=== PATIENT | male | born 1990 | race Hispanic/Latino ===

== ENCOUNTER 2021-12-18 22:01 | Inpatient (IN) | payer SELFPAY ==
[2021-12-18] MEDS ORDERED: ONDANSETRON 4 MG/2 ML VIAL ONE (23:06)
[2021-12-18] MEDS ORDERED: KETOROLAC 30 MG/ML INJ ONE (23:06)
[2021-12-18] MEDS ORDERED: NA CHLORIDE 0.9% 1,000 ML ONE (23:06)
[2021-12-18 23:09] LABS: Absolute Lymphocytes (CBC) 1.3 K/uL (0.7-4.9); Hematocrit 48.6 % (39.6-49.0); Lymphocytes % 11.4 % (15.3-44.8); MPV 9.2 fL (7.6-11.3); RBC Red Blood Cell Count 5.46 M/uL (4.33-5.43)
[2021-12-18 23:18] LABS: ALT/SGPT 31 U/L (12-78); AST/SGOT 15 U/L (15-37); Albumin 4.1 g/dL (3.4-5.0); Alkaline Phosphatase 88 U/L (45-117); BUN Blood Urea Nitrogen 10 mg/dL (7-18); Bicarbonate 30 mmol/L (21-32); Bilirubin Direct < 0.1 mg/dL (0-0.2); Bilirubin Total 0.4 mg/dL (0.2-1.0); Glucose Level 102 mg/dL (74-106); Lipase 94 U/L (73-393); Potassium 3.8 mmol/L (3.5-5.1); Protein, Total 8.4 g/dL (6.4-8.2); Sodium Level 136 mmol/L (136-145)
--- NOTE | 2021-12-19 01:32 | ER ---
Nurse's Notes [facility] Name: Hernandez Lopes Age: 31 yrs Sex: Male : 1990 Arrival Date: 12/18/2021 Time: 22:05 Bed 18 Private MD: Diagnosis: Acute cholecystitis Presentation: 12/18 22:12 Chief complaint: Patient states: upper/mid abd pain since 11:30am, vomited 8 times. sm5 thinks it may be related to what he is eating. Coronavirus screen: Vaccine status: Patient reports receiving the 2nd dose of the covid vaccine. Ebola Screen: No symptoms or risks identified at this time. Initial Sepsis Screen: Does the patient meet any 2 criteria? No. Patient's initial sepsis screen is negative. Does the patient have a suspected source of infection? No. Patient's initial sepsis screen is negative. Risk Assessment: Do you want to hurt yourself or someone else? Patient reports no desire to harm self or others. Onset of symptoms was December 18, 2021 at 11:30. 22:12 Method Of Arrival: Ambulatory [facility] 22:12 Acuity: MALACHI 3 [facility] Triage Assessment: 12/19 02:27 General: Behavior is calm, cooperative. linda Historical: - Allergies: 12/18 22:14 No Known Allergies; [facility] - Home Meds: 22:14 None [Active]; 5 - PMHx: 22:14 None; 5 - Immunization history:: Client reports receiving the 2nd dose of the Covid vaccine. - Social history:: Smoking status: Patient denies any tobacco usage or history of. Patient uses alcohol, weekly. Screenin:48 Abuse screen: Denies threats or abuse. Denies injuries from another. Nutritional linda screening: No deficits noted. Tuberculosis screening: No symptoms or risk factors identified. Fall Risk None identified. Assessment: 22:48 General: Appears uncomfortable. Pain: Complains of pain in abdomen. GI: Reports upper linda abdominal pain. 23:41 Reassessment: Patient appears in no apparent distress at this time. Patient states linda feeling better. Pain: Denies pain. 23:47 GI: Reports. linda 12/19 02:27 GI: Abd is soft and non tender. linda 03:22 General: Another nurse called report to the floor, as the pt is going to 415, and I linda will transfer the pt ainsley. Currently, he is resting comfortably. Registration called to "flip" the pt. . Vital Signs: 12/18 22:12 BP 144 / 83; Pulse 65; Resp 18; Temp 97.8; Pulse Ox 100% ; Weight 74.84 kg; Height 5 5 ft. 5 in. (165.10 cm); Pain 4/10; 22:48 BP 133 / 78; Pulse 58; Resp 16; Temp 98.6; Pulse Ox 100% on R/A; Pain 8/10; linda 23:45 BP 140 / 76; Pulse 52; Resp 16; Pulse Ox 100% on R/A; Pain 3/10; linda 12/19 01:23 BP 135 / 59; Pulse 58; Resp 18; Temp 98.6; Pulse Ox 100% on R/A; linda 02:00 BP 125 / 77; Pulse 77; Resp 16; Pulse Ox 100% on R/A; linda 03:11 BP 117 / 73; Pulse 72; Resp 14; Pulse Ox 99% on R/A; Pain 0/10; linda 12/18 22:12 Body Mass Index 27.46 (74.84 kg, 165.10 cm) [facility] ED Course: 12/18 22:05 Patient arrived in ED. kc5 22:14 Triage completed. [facility] 22:22 Chel[facility] Mora [facility]C [facility] kb 22:22 Seamus Abbott MD is Attending Physician. kb 22:48 Patient has correct armband on for positive identification. Pt walking around room. linda 22:59 Ana Rg, RN is Primary Nurse. linda 23:27 US Abdomen Limited In Process Unspecified. EDMS 23:45 Bed in low position. Call light in reach. Side rails up X 1. Verbal reassurance given. linda 23:45 Inserted saline lock: 20 gauge in left forearm, using aseptic technique. linda 23:47 No provider procedures requiring assistance completed. linda 12/19 01:31 Joby Enriquez MD is Hospitalizing Provider. kb 02:27 Arm band placed on. linda 03:23 Flushed linda Administered Medications: 12/18 23:12 Drug: NS 0.9% 1000 ml Route: IV; Rate: 1000 ml; Site: left antecubital; linda 12/19 02:44 Follow up: IV Intake: 1000ml linda 12/18 23:12 Drug: Zofran (Ondansetron) 4 mg Route: IVP; Site: left antecubital; linda 23:46 Follow up: Response: No adverse reaction linda 23:13 Drug: Ketorolac 15 mg Route: IVP; Site: left antecubital; linda 23:46 Follow up: Response: No adverse reaction; Pain is decreased linda 12/19 02:30 Drug: Flagyl (metroNIDAZOLE) 500 mg Volume: 100 ml; Route: IVPB; Rate: 200 ml/hr; linda Infused Over: 30 mins; Site: left antecubital; 03:12 Follow up: Response: No adverse reaction linda 02:43 Drug: D5-NS 1000 ml Route: IV; Rate: 125 ml/hr; Site: left antecubital; linda 02:44 Drug: morphine 4 mg Route: IVP; Site: left antecubital; linda 02:44 Follow up: Response: Pain is decreased linda 02:45 Drug: Mefoxin (cefOXitin) 1 grams Route: IVPB; Infused Over: 30 mins; Site: left linda antecubital; 03:12 Follow up: Response: No adverse reaction linda Intake: 02:44 IV: 1000ml; Total: 1000ml. linda Outcome: 01:31 Decision to Hospitalize by Provider. kb 02:27 Condition: stable linda 02:27 Admitted to Med/surg linda 04:42 Patient left the ED. linda Signatures: Dispatcher [employer] EDChelsie Edge FNP-C FNP-Ckb Clark, Kasey kc5 Shabnam Blanton RN RN sm5 Ana Rg RN RN linda
--- NOTE | 2021-12-19 01:32 | EDPHYS ---
Physician Documentation [facility] Name: Hernandez Lopes Age: 31 yrs Sex: Male : 1990 Arrival Date: 12/18/2021 Time: 22:05 Bed 18 Private MD: ED Physician Seamus Abbott HPI: 12/18 22:54 This 31 yrs old Male presents to ER via Ambulatory with complaints of kb Abdominal Pain. 22:54 The patient presents with abdominal pain in the right upper quadrant. Onset: The kb symptoms/episode began/occurred today. The symptoms do not radiate. Associated signs and symptoms: none. The symptoms are described as constant. Modifying factors: The symptoms are alleviated by nothing, the symptoms are aggravated by food. Severity of pain: At its worst the pain was moderate in the emergency department the pain is unchanged. The patient has not experienced similar symptoms in the past. The patient has not recently seen a physician. Pt reports upper abd pain that started this morning after eating [employer]. States he had this pain 2 other times this week, once after eating a breakfast taco and the other after eating pizza. . Historical: - Allergies: 22:14 No Known Allergies; sm5 - Home Meds: 22:14 None [Active]; sm5 - PMHx: 22:14 None; sm5 - Immunization history:: Client reports receiving the 2nd dose of the Covid vaccine. - Social history:: Smoking status: Patient denies any tobacco usage or history of. Patient uses alcohol, weekly. ROS: 22:54 Constitutional: Negative for fever, chills, and weight loss. kb 22:54 Abdomen/GI: Positive for abdominal pain, Negative for nausea, vomiting, and diarrhea. 22:54 All other systems are negative. Exam: 22:54 Constitutional: This is a well developed, well nourished patient who is awake, alert, kb and in no acute distress. Head/Face: Normocephalic, atraumatic. ENT: Moist Mucous membranes Cardiovascular: Regular rate and rhythm with a normal S1 and S2. No gallops, murmurs, or rubs. No pulse deficits. Respiratory: Respirations even and unlabored. No increased work of breathing. Talking in full sentences Skin: Warm, dry with normal turgor. Normal color. MS/ Extremity: Pulses equal, no cyanosis. Neurovascular intact. Full, normal range of motion. Neuro: Awake and alert, GCS 15, oriented to person, place, time, and situation. Moves all extremities. Normal gait. Psych: Awake, alert, with orientation to person, place and time. Behavior, mood, and affect are within normal limits. 22:54 Abdomen/GI: Inspection: abdomen appears normal, Bowel sounds: normal, in all quadrants, Palpation: soft, in all quadrants, moderate abdominal tenderness, in the right upper quadrant. Vital Signs: 22:12 BP 144 / 83; Pulse 65; Resp 18; Temp 97.8; Pulse Ox 100% ; Weight 74.84 kg; Height 5 sm5 ft. 5 in. (165.10 cm); Pain 4/10; 22:48 BP 133 / 78; Pulse 58; Resp 16; Temp 98.6; Pulse Ox 100% on R/A; Pain 8/10; linda 23:45 BP 140 / 76; Pulse 52; Resp 16; Pulse Ox 100% on R/A; Pain 3/10; linda 12/19 01:23 BP 135 / 59; Pulse 58; Resp 18; Temp 98.6; Pulse Ox 100% on R/A; linda 02:00 BP 125 / 77; Pulse 77; Resp 16; Pulse Ox 100% on R/A; linda 03:11 BP 117 / 73; Pulse 72; Resp 14; Pulse Ox 99% on R/A; Pain 0/10; linda 12/18 22:12 Body Mass Index 27.46 (74.84 kg, 165.10 cm) sm5 MDM: 12/18 22:25 Patient medically screened. kb 22:54 Data reviewed: vital signs, nurses notes. Data interpreted: Pulse oximetry: on room air kb is 100 %. Interpretation: normal. 12/19 00:25 Counseling: I had a detailed discussion with the patient and/or guardian regarding: the kb historical points, exam findings, and any diagnostic results supporting the discharge/admit diagnosis, lab results, radiology results, the need for further work-up and treatment in the hospital. Physician consultation: Joby Enriquez MD paged. 01:12 Physician consultation: Joby Enriquez MD paged again at 0101. kb 01:30 ED course: Dr Abbott spoke with Dr Enriquez about pt's admission. . kb 12/18 22:22 Order name: Basic Metabolic Panel kb 12/18 22:22 Order name: CBC with Diff kb 12/18 22:22 Order name: Hepatic Function kb 12/18 22:22 Order name: Lipase kb 12/18 22:23 Order name: Basic Metabolic Panel; Complete Time: 23:18 EDMS 12/18 22:23 Order name: CBC with Automated Diff; Complete Time: 23:11 EDMS 12/18 22:23 Order name: Liver (Hepatic) Function; Complete Time: 23:18 EDMS 12/18 22:23 Order name: Lipase; Complete Time: 23:18 EDMS 12/18 22:37 Order name: US Abdomen Limited kb 12/18 23:19 Order name: COVID-19 SARS RT PCR (Document "Date of Onset" if Symptomatic); Complete kb Time: :12/18 22:22 Order name: IV Saline Lock kb 12/18 22:22 Order name: Labs collected and sent kb Administered Medications: 12/18 23:12 Drug: NS 0.9% 1000 ml Route: IV; Rate: 1000 ml; Site: left antecubital; linda 12/19 02:44 Follow up: IV Intake: 1000ml linda 12/18 23:12 Drug: Zofran (Ondansetron) 4 mg Route: IVP; Site: left antecubital; linda 23:46 Follow up: Response: No adverse reaction linda 23:13 Drug: Ketorolac 15 mg Route: IVP; Site: left antecubital; linda 23:46 Follow up: Response: No adverse reaction; Pain is decreased linda 12/19 02:30 Drug: Flagyl (metroNIDAZOLE) 500 mg Volume: 100 ml; Route: IVPB; Rate: 200 ml/hr; linda Infused Over: 30 mins; Site: left antecubital; 03:12 Follow up: Response: No adverse reaction linda 02:43 Drug: D5-NS 1000 ml Route: IV; Rate: 125 ml/hr; Site: left antecubital; linda 02:44 Drug: morphine 4 mg Route: IVP; Site: left antecubital; linda 02:44 Follow up: Response: Pain is decreased linda 02:45 Drug: Mefoxin (cefOXitin) 1 grams Route: IVPB; Infused Over: 30 mins; Site: left linda antecubital; 03:12 Follow up: Response: No adverse reaction linda Disposition: 05:39 Co-signature as Attending Physician, Seamus Abbott MD I agree with the assessment and rn plan of care. Attestation: The patient's history, exam findings, diagnostics, and a summary of any interventions or procedures was reviewed in detail with Chelsie PONCE. Disposition Summary: 12/19/21 01:31 Hospitalization Ordered Hospitalization Status: Observation kb Provider: Joby Enriquez Location: Telemetry/MedSurg (observation) kb Condition: Stable kb Problem: new kb Symptoms: are unchanged kb Bed/Room Type: Standard Room Assignment: 415(12/19/21 02:24) eb1 Diagnosis - Acute cholecystitis kb Forms: - Medication Reconciliation Form kb - SBAR form kb Signatures: Dispatcher [employer] EDMS Chelsie Mora FNP-C FNP-CkSeamus Atkinson MD MD rn Basinger, Emily, RN RN eb1 Shabnam Blanton RN RN 5 Ana Rg RN RN linda Corrections: (The following items were deleted from the chart) 02:24 01:31 kb eb1
--- NOTE | 2021-12-19 01:44 | P.CNS ---
Date of Consult: 12/19/21 Reason for Consult: Medical management Requesting Physician: Joby Enriquez Primary Care Provider: none Chief Complaint: Right upper quadrant pain History of Present Illness: Otherwise healthy 31-year-old male presented to the emergency permit for right upper quadrant abdominal pain intermittently over the course of last week, this pain started after eating [employer] last night. Patient was evaluated in the emergency department labs were significant for white blood cell count 11.4, incidentally COVID-positive. Patient any respiratory symptoms at all who percent on room air fully vaccinated, has not tested positive for COVID previously, no known ill contacts. Patient had abdominal ultrasound which revealed cholelithiasis with questionable calculus lodged within the gallbladder neck, pericholecystic fluid and minimal gallbladder wall thickening findings which could be seen in acute cholecystitis. General surgery was consulted who recommends admission, n.p.o., IV antibiotics and pain medication with consult to the hospital service for patient being COVID-positive. - Past Medical/Surgical History -: None -: None Psychosocial/ Personal History: Patient is employed as a food and beverage intern , lives at home, alone. - Social History Smoking Status: Never smoker Alcohol use: Yes CD- Drugs: No Caffeine use: Yes Place of Residence: Home <Jaime Lloyd - Last Filed: 12/19/21 01:41> Review of Systems 10-point ROS is otherwise unremarkable Gastrointestinal: Nausea, Vomiting, Abdominal Pain <Jaime Lloyd - Last Filed: 12/19/21 01:41> Physical Examination General: Alert, In no apparent distress, Oriented x3 HEENT: Atraumatic, PERRLA, Mucous membr. moist/pink, EOMI, Sclerae nonicteric Neck: Supple, 2+ carotid pulse no bruit, No LAD, Without JVD or thyroid abnor mality Respiratory: Clear to auscultation bilaterally, Normal air movement Cardiovascular: Regular rate/rhythm, Normal S1 S2 Gastrointestinal: Normal bowel sounds, No rebound, No guarding, Tenderness (Moderate epigastric/right upper quadrant abdominal tenderness) Musculoskeletal: No tenderness Integumentary: No rashes Neurological: Normal gait, Normal speech, Normal tone, Normal affect Lymphatics: No axilla or inguinal lymphadenopathy Laboratory Data (last 24 hrs) 12/18/21 22:44: WBC 11.40 H, Hgb 16.5, Hct 48.6, Plt Count 233 12/18/21 22:44: Sodium 136, Potassium 3.8, BUN 10, Creatinine 0.84, Glucose 102, Total Bilirubin 0.4, AST 15, ALT 31, Alkaline Phosphatase 88, Lipase 94 <Jaime Lloyd - Last Filed: 12/19/21 01:41> Temp Pulse Resp BP Pulse Ox 98 F 62 20 113/54 L 91 12/19/21 12:25 12/19/21 12:25 12/19/21 12:25 12/19/21 12:25 12/19/21 08:00 Laboratory Data (last 24 hrs) 12/18/21 22:44: WBC 11.40 H, Hgb 16.5, Hct 48.6, Plt Count 233 12/18/21 22:44: Sodium 136, Potassium 3.8, BUN 10, Creatinine 0.84, Glucose 102, Total Bilirubin 0.4, AST 15, ALT 31, Alkaline Phosphatase 88, Lipase 94 <David Abbott - Last Filed: 12/19/21 14:06> Conclusions/Impression: Assessment: Right upper quadrant pain/vomiting suspected acute cholecystitis Incidentally COVID-positive Plan: Right upper quadrant pain/vomiting suspected acute cholecystitis: General surgery consulted, n.p.o., IV antibiotics including Mefoxin/Flagyl. Incidentally COVID-positive: Patient asymptomatic, fully vaccinated we will continue to monitor. DVT PPX: SCD Code status:Full Critical Care: No Time Spent Managing Pts care (In Minutes): 35 <Jaime Lloyd - Last Filed: 12/19/21 01:41> Conclusions/Impression: Patient seen and examined on rounds this morning. Continues with RUQ abdominal discomfort, no n/v denies SOB, no cough, denies any other respiratory symptoms asymptomatic from COVID-19 at this time, will continue to monitor. no role for steroids / COVID specific therapy at this time <David Abbott - Last Filed: 12/19/21 14:06>
[2021-12-19] MEDS ORDERED: NA CHLORIDE 0.9% 50 ML ONE (02:16)
[2021-12-19] MEDS ORDERED: METRONIDAZOLE 500mg IVPB 500 MG/100 ML BAG IV ONE (02:16)
[2021-12-19] MEDS ORDERED: NA CHLORIDE 0.9% 100 ML ONE (02:16)
[2021-12-19] MEDS ORDERED: CEFOXITIN SODIUM 1 GM/VIAL ONE (02:16)
[2021-12-19] MEDS ORDERED: MORPHINE 4 MG/ML SYR ONE (02:27)
[2021-12-19] MEDS ORDERED: D5 0.45 NS 0 ML IV ONE (02:27)
[2021-12-19] MEDS ORDERED: D5 0.9 NS 1,000 ML IV ONE (02:31)
[2021-12-19] MEDS: NA CHLORIDE 0.9% 1,000 ML IV SCH ×3 (04:08→17:08)
[2021-12-19] MEDS ORDERED: ONDANSETRON 4 MG/2 ML VIAL IV PRN ×2 (04:08→11:51)
[2021-12-19] MEDS ORDERED: ACETAMINOPHEN 500 MG TAB PO PRN (04:08)
[2021-12-19] MEDS ORDERED: MORPHINE 4 MG/ML SYR IV PRN (04:08)
[2021-12-19 04:14] VITALS: BMI 27.4
[2021-12-19] MEDS ORDERED: CEFOXITIN SODIUM 1 GM/VIAL IVPB SCH (06:00)
[2021-12-19] MEDS: CEFOXITIN 1 GM in NA CHLORIDE 0.9% 50 ML IVPB SCH ×3 (06:37→17:08)
[2021-12-19] MEDS ORDERED: METRONIDAZOLE 500mg IVPB 500 MG/100 ML BAG IV SCH (09:00)
[2021-12-19] MEDS ORDERED: INFLUENZA VACCINE (for 6+ mo) 0.5 ML DOSE IMVAC ONE (09:00)
[2021-12-19] MEDS ORDERED: Ringers Lactate 1,000 ML IV ONE (09:04)
[2021-12-19] MEDS ORDERED: LIDOCAINE 1% MPF 5 ML VIAL ONE (10:13)
[2021-12-19] MEDS ORDERED: dexAMETHasone 10 MG/ML VIAL ONE (10:13)
[2021-12-19] MEDS ORDERED: propofoL 200 MG/20 ML VIAL IV ONE (10:13)
[2021-12-19] MEDS ORDERED: MIDAZOLAM HCL 2 MG/2 ML INJ ONE ×2 (10:13→10:15)
[2021-12-19] MEDS ORDERED: FENTANYL CITR 250 MCG/5 ML ONE (10:14)
[2021-12-19] MEDS ORDERED: ROCURONIUM 50 MG/5 ML VIAL IV ONE (10:14)
[2021-12-19] MEDS ORDERED: BUPIVACAINE 0.5% PF 10 ML VIAL ONE (10:16)
[2021-12-19] MEDS ORDERED: GLYCOPYRROLATE 0.2 MG/ML SYR ONE (10:39)
[2021-12-19] MEDS ORDERED: CEFOXITIN/NS 1gm 1 GM/50 ML BAG ONE (10:51)
--- NOTE | 2021-12-19 11:24 | PREOPHP ---
Date of Admission: 12/19/2021 Chief Complaint: Abdominal pain. History Of Present Illness: The patient is a 31-year-old gentleman, who came in with biliary colic a fter eating [employer] the last night to the emergency room. He has had 3 other episodes similar to this in the recent past associated with nausea and vomiting. No bloating or belching. Occasional he artburn, postprandial in nature. No sore throat, runny nose, cough, headaches, or dizziness. No ilsa st pain. No fever or chills. Review of Systems: Otherwise unremarkable. Please note, the patient was tested for COVID and was positive, but he is co mpletely asymptomatic and he is fully vaccinated. Past Medical History: Negative. Past Surgical History: Negative. Allergies: NO ALLERGIES. Social History: The patient does not smoke. Drinks occasionally. Family History: Noncontributory. Physical Examination: Vital Signs: Stable. He is afebrile. General: He is awake, alert, and oriented x3. Head and Neck: Cranial nerves 2 through 12 are grossly within normal limits. No neck masses. No JV D. Throat clear. Neck is supple. Chest: Clear. Heart: S1, S2. Abdomen: Soft, nondistended. Positive bowel sounds. Positive right upper quadrant tenderness. No rebound, rigidity, or guarding. Extremities: Adequately perfused. Nontender. Neuro: Nonfocal. Laboratory Data: Reviewed. White count is slightly elevated at 11.4 with a left shift. LFTs are wi thin normal limits. Alkaline phosphatase and total bilirubin are within normal limits. Ultrasound o f the abdomen is consistent with acute cholecystitis and cholelithiasis. Assessment: Acute cholecystitis and cholelithiasis. Plan: Admit, n.p.o., IV fluid, IV antibiotic, to the OR for lap choly possible open. Consult hospit alist for management of COVID. The patient understands the risks, benefits, and alternatives and agr ees to procedure. /MODL Voice ID: [id number]
--- NOTE | 2021-12-19 11:44 | P.OP ---
Telegraph Plant Maintainer: Padmini GUALLPA Preoperative diagnosis: Acute Cholecystitis and Cholelithiasis Postoperative diagnosis: same Primary procedure: Lap Emma Anesthesia: General Estimated blood loss: min Specimen: GB Findings: as above Complications: None Transferred to: Recovery Room Condition: Good
[2021-12-19] MEDS ORDERED: KETOROLAC 30 MG/ML INJ ONE (12:02)
--- NOTE | 2021-12-19 12:15 | OP ---
Date of Procedure: 12/19/2021 Surgeon: Joby Enriquez MD Python Java Developer: SALONI Monroy. Preoperative Diagnosis: Acute cholecystitis and cholelithiasis. Postoperative Diagnosis: Acute cholecystitis and cholelithiasis. Procedure: Laparoscopic cholecystectomy. Estimated Blood Loss: Minimal. Specimen: Gallbladder. Finding: As above. Anesthesia: General. Complications: None. Disposition: The patient tolerated the procedure in stable condition and taken to Recovery in good g eneral condition. Procedure In Detail: The patient was brought to the OR and placed in supine position. General anest hesia begun. The patient was prepped and draped in the usual sterile fashion. Marcaine 0.5% was inf iltrated locally. A 15-blade was used to make a 1 cm supraumbilical midline incision. Subcutaneous tissue divided. Fascia identified and divided. A #1 Vicryl stay suture was placed. Peritoneal cavi ty entered with sharp and blunt dissection. A 12 mm trocar was placed into the peritoneal cavity und er direct vision. Pneumoperitoneum was established and then three 5 mm trocars were placed, 1 in the epigastrium just to the right of midline and 2 in the right subcostal region. Laparoscopy revealed distended gallbladder, thickened wall consistent with acute cholecystitis. Gallbladder aspirated to allow for better retraction of the fundus, which was done and then the fundus retracted superiorly. Infundibulum was identified and retracted inferolaterally. Cystic duct and cystic artery were clearl y identified with blunt dissection. There were some adhesions present, which were taken down. Bleed ing was controlled with cautery and then clips were placed on the cystic duct and cystic artery. Bot h structures were divided. Cautery was used to remove the gallbladder from the liver bed. Bleeding on the liver bed was controlled with cautery. Gallbladder was retrieved through the umbilicus via an EndoCatch bag. Right upper quadrant was irrigated. Effluent was clear. No evidence of bleeding or bile leakage appreciated. Subsequently, all trocars were removed under direct vision. Stay sutures were tied to each other to approximate the fascial defect. Subcutaneous wounds were irrigated. Ble eding controlled cautery. A 3-0 chromic used to approximate the subcutaneous tissue and close the sk in. Sterile dressing applied. The patient was awakened and taken to Recovery in good general condit ion. /MODL Voice ID: [id number] Report ID: [id number]
--- NOTE | 2021-12-19 14:56 | RAD REPORT ---
EXAM DESCRIPTION: US - Abdomen Exam Limited - 12/19/2021 12:02 am CLINICAL HISTORY: 31 years, Male, ABD PAIN COMPARISON: None. TECHNIQUE: Utilizing a curved array transducer, real-time ultrasound evaluation of the abdominal vis cera was performed. Color Doppler imaging was used to assess vascular flow. FINDINGS: The liver demonstrate normal echo pattern. There is no significant intrahepatic biliary du ct dilatation. The gallbladder presence of echogenic structure with posterior shadowing along the fundus measuring 2 cm and a echogenic structure perhaps enlarged within the gallbladder neck area, corresponding to cho lelithiasis. There is mild gallbladder wall thickening measuring 3.7 mm. There is questionable minima l trace of pericholecystic fluid. The common bile duct measures 6.6 mm. IMPRESSION: CHOLELITHIASIS WITH QUESTIONABLE CALCULUS LODGED WITHIN THE GALLBLADDER NECK. PERICHOLEC YSTIC FLUID AND MINIMAL GALLBLADDER WALL THICKENING FINDINGS COULD BE SEEN IN ACUTE CHOLECYSTITIS. IF CONCERN HIDA SCAN COULD BE OF ASSISTANCE. Electronically signed by: Armin Medina MD 12/18/2021 11:43 PM [employer] Due to temporary technical issues with the PACS/Fluency reporting system, reports are being signed by the in house radiologists without review as a courtesy to insure prompt reporting. The interpreting radiologist is fully responsible for the content of the report.
[2021-12-19] MEDS: HYDROCODONE/APAP 7.5/325 MG TAB PO PRN (21:49)
[2021-12-19] MEDS: HYDROMORPHONE HCL 1 MG/ML INJ IV PRN (22:52)
[2021-12-20] MEDS: NA CHLORIDE 0.9% 1,000 ML IV SCH (00:31)
[2021-12-20] MEDS: CEFOXITIN 1 GM in NA CHLORIDE 0.9% 50 ML IVPB SCH ×2 (00:31→05:34)
[2021-12-20] MEDS: HYDROMORPHONE HCL 1 MG/ML INJ IV PRN ×2 (01:34→04:47)
--- NOTE | 2021-12-20 06:11 | P.PN ---
Date of Service: 12/20/21 Subjective: doing well this AM, slight discomfort in abd, +flatus, tolerated diet ROS: 10 point ROS otherwise negative Physical Exam: Gen: NAD HEENT: normal conjunctiva, sclera anicteric CV: RRR, no murmur Pulm: clear to auscultation bilaterally Abd: soft, surgical dressings c/d/i Problem list acute cholecystitis Incidentally COVID-positive s/p lap chaya on 12/19 doing well antibiotics/pain control per general surgery denies SOB, no cough, asymptomatic from COVID at this time, no medications/treatment indicated at this time Dispo: home when cleared by general surgery Time spent managing patient's care (minutes): 25
[2021-12-20] MEDS: HYDROCODONE/APAP 7.5/325 MG TAB PO PRN (07:48)
[2021-12-20 08:40] VITALS: BP 127/78; TEMP 97.3
--- NOTE | 2021-12-20 09:06 | DS ---
Date of Discharge: 12/20/2021 Admitting Diagnoses: Acute cholecystitis and cholelithiasis. Discharge Diagnoses: Acute cholecystitis and cholelithiasis. Procedure Performed: Laparoscopic cholecystectomy. Hospital Course: The patient is a 31-year-old who underwent the aforementioned procedure. Yesterday postoperatively, he is tolerating a diet, ambulating, pain controlled with p.o. pain medication, afe brile, therefore, patient will be discharged to home. Disposition: Home. Condition: Stable. Discharge Instructions: Resume home medications and diet. Activity as tolerated. No heavy lifting. Remove outer dressing in a.m. Shower. Keep wound clean and dry. Keep Steri-Strips on at all times . Followup my office in 1 week. Call for appointment. Cipro 500 mg p.o. q.12, Tylenol No.3 one tab let p.o. q.4 p.r.n. pain. /MODL Voice ID: [id number] Report ID: [id number]
[2021-12-20 09:27] VITALS: O2SAT 98
== END 2021-12-20 09:30 | disposition home or self-care (01) | DRG 417 ==
LOC: ER 22:01 → ERHOLD 12-19 01:39 → 4TH 12-19 03:25 → OBSVTOIN 12-19 14:19
PROVIDERS: ADMIT Surgery; ATTEND Surgery
PROC: 0FT44ZZ Resection of Gallbladder, Percutaneous Endoscopic Approach (ICD-10-PCS; principal; 2021-12-19 11:15)
DX: K80.00 Calculus of gallbladder with acute cholecystitis without obstruction (principal); U07.1 COVID-19
CPT/HCPCS: 36415; 76705; 80048; 80076; 83690; 85025; 88304; 94010; 96374; 96375; 99285; G0378; J0694; J1100; J1170; J2250; J2405; J2704; J3010; J7030; J7042; J7120; J7799; U0003